=== PATIENT | female | born 1975 | race Caucasian/White ===

== ENCOUNTER → 2022-09-03 08:15 | Outpatient (CLI) | payer BC, SELFPAY ==
--- NOTE | ~2022-09-03 | US_ITS ---
US thyroid INDICATION: Palpable thyroid nodule TECHNIQUE: Real-time sonographic images of the thyroid gland were obtained. COMPARISON: No prior studies for comparison. FINDINGS: The right thyroid lobe measures 4.3 x 1.3 x 1.1 cm. The left thyroid lobe measures 5 x 2.6 x 2.6 cm. There is normal echotexture and echogenicity throughout the thyroid gland. In the left lob e there is a mass measuring 2.7 x 2.3 x 2.2 cm Which is slightly hypoechoic, mostly solid, wider than tall, smoothly marginated without calcificatio ns, TR 4. Normal vascular flow is present. IMPRESSION: 1. Abnormal left thyroid mass measuring 2.7 cm, TR 4. Ultrasound-guided fine-needle aspiration biops y recommended. Reviewed, dictated and finalized at location A. IMPRESSION: 1. Abnormal left thyroid mass measuring 2.7 cm, TR 4. Ultrasound-guided fine-n eedle aspiration biopsy recommended.
== END ==
PROVIDERS: PCP Pediatrics; Visit Provider Nurse Practitioner Family
DX: E04.1 Nontoxic single thyroid nodule (principal)
CPT/HCPCS: 76536

== ENCOUNTER → 2022-09-05 15:15 | Outpatient (CLI) | payer BC, SELFPAY ==
--- NOTE | ~2022-09-05 | XR_ITS ---
Clinical Indication: Thyroid nodule PA and lateral views of the chest: Comparison: None Findings: The lungs are clear, without evidence of focal consolidation or pleural effusion. Cardiome diastinal silhouette is within normal limits. Bones and soft tissues are unremarkable. Impression: Normal chest. Reviewed, dictated and finalized at location . Impression: Normal chest.
== END ==
PROVIDERS: PCP Pediatrics; Visit Provider Nurse Practitioner Family
DX: E04.1 Nontoxic single thyroid nodule (principal)
CPT/HCPCS: 71046

== ENCOUNTER 2023-09-12 08:32 | Day surgery (SDC) | payer OTHER, SELFPAY ==
[2023-08-11 08:44] VITALS: BMI 30.7
[2023-08-29 14:32] VITALS: BMI 30.7
--- NOTE | 2023-09-11 19:33 | PM.HPGS ---
History of Present Illness History of Present Illness Consent: Risks, benefits, and alternatives have been discussed and questions answered. Patient agrees to proceed with procedure. Chief complaint: Neoplasm screening. Narrative: Peri Mike is a 47 year old female who is referred for colon cancer screening. she has a family history of polyps, her mother has had many polyps. Review of Systems Review of Systems: All systems reviewed & are unremarkable except as noted in HPI and below [facility] Social History Social History Smoking status: Never smoker Alcohol intake: current Substance use: never Substance use type: does not use Living arrangements: with family Meds Home Medications and Allergies Home Medications Medication Instructions Recorded Confirmed Type sertraline 50 mg tablet 1 mg PO DAILY 08/29/23 08/29/23 History Allergies Allergy/AdvReac Type Severity Reaction Status Date / Time No Known Allergies Allergy Verified 09/12/23 09:13 Exam Resp: Auscultation: clear to auscultation bilaterally Cardio: Rate: regular rate Rhythm: regular rhythm GI: GI Palp: Yes Soft to palpation and No Tenderness to palpation present (GI) Assessment and Plan Assessment and plan (1) Colon cancer screening: Code(s): Z12.11 - Encounter for screening for malignant neoplasm of colon Status: Acute Assessment and Plan: Colonoscopy with possible biopsy or polypectomy or cautery or injection of substances.
[2023-09-12 09:27] VITALS: BP 106/94; PULSE 84; RESP 20; TEMP 36.4; O2SAT 100; BMI 31.1
[2023-09-12] MEDS: LACTATED RINGERS 1,000 ML 150 ML IV CONT (09:31)
--- NOTE | 2023-09-12 09:48 | WPDANESEPPF ---
Anes - Initial Pre Proc Eval Procedure: Operation Date: 09/12/23 10:30 Proposed Procedures p Screening Colonoscopy - David Velarde MD Date/Time: 09/12/23 09:48 Surgeon: David Velarde MD Pre Op Diagnosis: Neoplasm screening. Patient Data Age: 47 Gender: F Height: 1.63 m Weight: 82.3 kg Last Vital Signs Temp 36.4 C L 09/12/23 09:27 Pulse 84 09/12/23 09:27 Resp 20 09/12/23 09:27 BP 106/94 H 09/12/23 09:27 Pulse Ox 100 09/12/23 09:27 O2 Del Method Room Air 09/12/23 09:27 Allergies Allergy/AdvReac Type Severity Reaction Status Date / Time No Known Allergies Allergy Verified 09/12/23 09:13 Home Medications Medication Instructions Recorded Confirmed Type sertraline 50 mg tablet 1 mg PO DAILY 08/29/23 08/29/23 History Patient hx anesthesia problems: none Family hx anesthesia problems: none Results Review: All pre-operative results and documents have been reviewed as part of the pre-operative evaluation. [facility] Past Medical History Medical History (Updated 09/12/23 @ 09:48 by Josafat Garcia MD) Anxiety Obesity Surgical History Surgical History (Updated 09/12/23 @ 09:48 by Josafat Garcia MD) History of section Social History Social History Smoking status: Never smoker Alcohol intake: current Substance use: never Substance use type: does not use Living arrangements: with family Anes - Eval Final PreProcedure Day of Procedure 09/12/23 09:48 Patient weight: obese Heart: regular rate and rhythm Lungs: clear to auscultation Airway: Mallampati scale class II Neurological: alert and oriented Last oral intake: >/= 8 hours ASA classification: II Emergent: no Anesthetic plan: proceed Anesthesia type and monitoring: general GIVS and standard monitoring Results Review: All pre-operative results and documents have been reviewed as part of the pre-operative evaluation. Informed Consent: The patient's anesthetic plan and its attendant risks and benefits were discussed with the patient/family/POA. Questions were solicited and answers provided to the satisfaction of the patient/family/POA.
[2023-09-12 10:22] VITALS: BP 103/68; PULSE 80; RESP 14; O2SAT 96
[2023-09-12 10:32] VITALS: BP 112/78; PULSE 76; RESP 16; O2SAT 98
[2023-09-12 10:42] VITALS: BP 110/82; PULSE 70; RESP 16; O2SAT 100
--- NOTE | 2023-09-12 10:42 | WPDANESPN ---
Anes - Prog Note Post-Op Date/Time: 09/12/23 10:42 Cardiovascular status: normal Respiratory status: normal Airway patency: baseline Mental status: baseline Post-Op hydration status: normal Vital Signs: Last Vital Signs Temp 36.4 C L 09/12/23 09:27 Pulse 76 09/12/23 10:32 Resp 16 09/12/23 10:32 BP 112/78 09/12/23 10:32 Pulse Ox 98 09/12/23 10:32 O2 Del Method Room Air 09/12/23 10:32 Pain Score (VAS): 0/10 I/O: Intake & Output 09/11/23 09/12/23 09/12/23 23:59 07:59 15:59 Intake Total 600 Balance 600 Patient Feedback: Patient satisfied with anesthetic care.
== END 2023-09-12 10:49 | disposition home or self-care (01) ==
PROVIDERS: PCP Pediatrics; Visit Provider Internal Medicine Gastroenterology
PROC: 0DJD8ZZ Inspection of Lower Intestinal Tract, Via Natural or Artificial Opening Endoscopic (ICD-10-PCS; CPT 45378; principal; 2023-09-12 10:30)
DX: Z12.11 Encounter for screening for malignant neoplasm of colon (principal)
CPT/HCPCS: 45378